=== PATIENT | male | born 1945 | race Caucasian/White ===

== ENCOUNTER 2018-09-03 15:42 | Inpatient (IN) | payer OTHER ==
[~2018-09-03] VITALS: Ht 175.3 cm; Wt 97.6 kg
[2018-09-03 17:17] LABS: PLATELET COUNT 351 x10^3mcL (130-400)
[2018-09-03 17:20] LABS: BASOPHIL % 0 % (0-2)
[2018-09-03 17:25] LABS: ALKALINE PHOSPHATASE 267 U/L (46-116); ALT/SGPT 41 U/L (16-63); AST/SGOT 38 U/L (15-37); BILIRUBIN TOTAL 0.99 mg/dL (0.20-1.00); CALCIUM 8.3 mg/dL (8.5-10.1); CARBON DIOXIDE 26.6 mmol/L (21-32); CHLORIDE SERUM 90 mmol/L (98-107); CREATININE SERUM 0.9 mg/dL (0.7-1.3); GLUCOSE SERUM 133 mg/dL (74-106); TOTAL PROTEIN, SERUM 7.8 g/dL (6.4-8.2)
[2018-09-03 17:28] LABS: SODIUM SERUM 123 mmol/L (136-145)
[2018-09-03 17:45] LABS: ovalocyte/elliptocyte 1+; rbc morphology (normal/abnorm) ABNORMAL (NORMAL)
[2018-09-03 18:42] LABS: AMPHETAMINE QUAL UR NONE DETECTED (See below)
[2018-09-03] MEDS ORDERED: MIN2 PO (18:47)
[2018-09-03] MEDS ORDERED: GENVOYA TABLET1 EACH PO (18:48)
[2018-09-03] MEDS ORDERED: ZOLOFT50 MG PO (18:48)
[2018-09-03] MEDS ORDERED: PREZISTA800 M1 PO (18:50)
[2018-09-03] MEDS ORDERED: METOCLOPRAMIDE10 M2 PO (18:50)
[2018-09-03] MEDS ORDERED: FUROSEMIDE40 MG PO (18:51)
[2018-09-03] MEDS ORDERED: CRESTOR20 M1 PO (18:51)
[2018-09-03] MEDS ORDERED: CARVEDILOL6.25 M1 PO (18:51)
[2018-09-03] MEDS ORDERED: CRESTOR10 M1 PO (18:51)
[2018-09-03] MEDS ORDERED: CARBIDOPA25 MG PO (18:55)
[2018-09-03] MEDS ORDERED: ARICEPT10 MG PO (18:55)
[2018-09-03] MEDS ORDERED: GABAPENTIN100 M2 PO (18:56)
[2018-09-03] MEDS ORDERED: MEMANTINE HCL5 MG PO (18:56)
[2018-09-03] MEDS ORDERED: LANTUS SOLOS100 U/M1 SQ (18:57)
[2018-09-03] MEDS ORDERED: PRAMIPEXOLE DI0.5 M1 PO (18:57)
[2018-09-03 19:24] LABS: CHOLESTEROL/HDL RATIO 5.3; MAGNESIUM 2.1 mg/dL (1.8-2.4); PHOSPHOROUS 2.4 mg/dL (2.5-4.9)
[2018-09-03 19:34] LABS: FREE T4 1.34 ng/dL (0.76-1.46); FREE THYROXINE INDEX 3.6 ug/dL (1.4-4.5); T4(THYROXINE) 9.4 ug/dL (4.7-13.3)
[2018-09-03 20:22] VITALS: BP 130/65
[2018-09-03 20:33] VITALS: Ht 175.3 cm; Wt 97.6 kg
[2018-09-03 20:56] LABS: T3 TOTAL 0.79 ng/mL
[2018-09-03 21:47] LABS: microscopic required? YES; urine erythrocyte NEGATIVE (NEGATIVE)
[2018-09-03] MEDS ORDERED: GOOD SENSE ASPI81 M3 PO (22:01)
[2018-09-04 05:31] VITALS: BP 147/68
[2018-09-04 06:46] LABS: CALCIUM 8.5 mg/dL (8.5-10.1); CARBON DIOXIDE 25.8 mmol/L (21-32); CHLORIDE SERUM 90 mmol/L (98-107); CREATININE SERUM 0.9 mg/dL (0.7-1.3); GLUCOSE SERUM 110 mg/dL (74-106); POTASSIUM SERUM 5.5 mmol/L (3.5-5.1)
[2018-09-04 06:56] LABS: SODIUM SERUM 123 mmol/L (136-145)
[2018-09-04 08:03] LABS: BASOPHIL % 0 % (0-2); PLATELET COUNT 331 x10^3mcL (130-400); RED CELL DISTRIBUTION WIDTH 22.1 % (11.5-14.5)
[2018-09-04 09:02] VITALS: BP 130/63
[2018-09-04 10:11] LABS: ovalocyte/elliptocyte 1+; schistocyte (helmet cell) 1+; tear drop cell (dacryocyte) 1+
[2018-09-04 10:12] LABS: acanthocyte (spur cell) 1+; rbc morphology (normal/abnorm) ABNORMAL (NORMAL); target cell (codocyte) 1+
[2018-09-04 13:00] VITALS: BP 119/67
[2018-09-04 17:04] VITALS: BP 136/64
[2018-09-04 20:43] VITALS: BP 139/61
[2018-09-05 05:12] VITALS: BP 139/71
[2018-09-05 06:45] LABS: PLATELET COUNT 332 x10^3mcL (130-400)
[2018-09-05 07:01] LABS: CALCIUM 8.3 mg/dL (8.5-10.1); CHLORIDE SERUM 93 mmol/L (98-107); GLUCOSE SERUM 128 mg/dL (74-106); MAGNESIUM 2.2 mg/dL (1.8-2.4); PHOSPHOROUS 3.9 mg/dL (2.5-4.9); POTASSIUM SERUM 3.9 mmol/L (3.5-5.1); SODIUM SERUM 131 mmol/L (136-145)
[2018-09-05 07:49] LABS: RED CELL DISTRIBUTION WIDTH 24.4 % (11.5-14.5)
[2018-09-05 09:07] LABS: BAND NEUTROPHIL 0 % (0-10); BASOPHIL 0 % (0-2); MONOCYTE 1 % (0-7); SEGMENTED NEUTROPHILS 97 % (37-75)
[2018-09-05 09:09] LABS: PLATELET MORPHOLOGY PLATELETS NORMAL
[2018-09-05 09:10] LABS: rbc morphology (normal/abnorm) ABNORMAL (NORMAL)
[2018-09-05 09:11] LABS: acanthocyte (spur cell) 1+
[2018-09-05 09:39] VITALS: BP 136/52
[2018-09-05 14:05] VITALS: BP 124/57
[2018-09-05 16:58] VITALS: BP 133/74
[2018-09-05 21:34] VITALS: BP 145/70
[2018-09-06 04:11] VITALS: BP 122/63
[2018-09-06 06:59] LABS: CALCIUM 8.5 mg/dL (8.5-10.1); CHLORIDE SERUM 95 mmol/L (98-107); GLUCOSE SERUM 139 mg/dL (74-106); MAGNESIUM 2.2 mg/dL (1.8-2.4); PHOSPHOROUS 3.5 mg/dL (2.5-4.9); POTASSIUM SERUM 3.9 mmol/L (3.5-5.1); SODIUM SERUM 133 mmol/L (136-145)
[2018-09-06 07:06] LABS: PLATELET COUNT 339 x10^3mcL (130-400)
[2018-09-06 07:08] LABS: RED CELL DISTRIBUTION WIDTH 24.2 % (11.5-14.5)
[2018-09-06 08:42] VITALS: BP 145/75
[2018-09-06] MEDS ORDERED: LEVAQUIN750 MG PO (09:23)
[2018-09-06 09:40] LABS: MONOCYTE 4 % (0-7); SEGMENTED NEUTROPHILS 92 % (37-75)
[2018-09-06 09:43] LABS: PLATELET MORPHOLOGY PLATELETS NORMAL; acanthocyte (spur cell) 1+; rbc morphology (normal/abnorm) ABNORMAL (NORMAL)
[2018-09-06 12:31] VITALS: BP 122/62
[2018-09-06 12:55] VITALS: BP 122/62
== END 2018-09-06 13:16 | disposition home or self-care (01) | DRG 291 ==
LOC: ED 15:42 → MU 18:44 → DU 18:44
PROVIDERS: Emergency Medicine; ADMIT General Practice
DX: I50.41 Acute combined systolic (congestive) and diastolic (congestive) heart failure (principal); J18.9 Pneumonia, unspecified organism; J96.01 Acute respiratory failure with hypoxia; N17.0 Acute kidney failure with tubular necrosis; E87.1 Hypo-osmolality and hyponatremia; D68.69 Other thrombophilia; E11.65 Type 2 diabetes mellitus with hyperglycemia; I48.91 Unspecified atrial fibrillation; E83.39 Other disorders of phosphorus metabolism; G25.81 Restless legs syndrome; E78.5 Hyperlipidemia, unspecified; D50.9 Iron deficiency anemia, unspecified; Z95.2 Presence of prosthetic heart valve; Z79.899 Other long term (current) drug therapy; Z68.32 Body mass index [BMI] 32.0-32.9, adult
CPT/HCPCS: 82962; 83880; 84439; 87804; 94150; J1644; J1815; J1940; J1956; J2543; J2920; J3370; J7030; J7620; J8597; Q0092

== ENCOUNTER 2018-10-27 18:29 | Emergency (ER) | payer OTHER ==
[~2018-10-27] VITALS: Ht 175.3 cm; Wt 106.6 kg
[~2018-10-27 18:29] MED LIST: ARICEPT10 MG PO; CARBIDOPA25 MG PO; CARVEDILOL6.25 M1 PO; CRESTOR10 M1 PO; CRESTOR20 M1 PO; FUROSEMIDE40 MG PO; GABAPENTIN100 M2 PO; GENVOYA TABLET1 EACH PO; GOOD SENSE ASPI81 M3 PO; LANTUS SOLOS100 U/M1 SQ; LEVAQUIN750 MG PO; MEMANTINE HCL5 MG PO; METOCLOPRAMIDE10 M2 PO; MIN2 PO; PRAMIPEXOLE DI0.5 M1 PO; PREZISTA800 M1 PO; ZOLOFT50 MG PO
[2018-10-27 18:54] VITALS: Ht 175.3 cm; Wt 106.6 kg
[2018-10-27 19:23] LABS: BASOPHIL % 0.7 % (0-2); PLATELET COUNT 211 x10^3mcL (130-400)
[2018-10-27 19:28] LABS: CARBON DIOXIDE 29.1 mmol/L (21-32); CHLORIDE SERUM 99 mmol/L (98-107); CREATININE SERUM 1.3 mg/dL (0.7-1.3); GLUCOSE SERUM 126 mg/dL (74-106); POTASSIUM SERUM 4.7 mmol/L (3.5-5.1); SODIUM SERUM 135 mmol/L (136-145)
[2018-10-27 19:29] LABS: RED CELL DISTRIBUTION WIDTH 30.1 % (11.5-14.5)
[2018-10-27 19:33] LABS: ALBUMIN 3.8 g/dL (3.4-5.0); ALKALINE PHOSPHATASE 111 U/L (46-116); ALT/SGPT 14 U/L (16-63); AST/SGOT 28 U/L (15-37); BILIRUBIN TOTAL 0.4 mg/dL (0.20-1.00); TOTAL PROTEIN, SERUM 7.7 g/dL (6.4-8.2)
[2018-10-27 19:50] LABS: rbc morphology (normal/abnorm) ABNORMAL (NORMAL)
[2018-10-27 21:44] VITALS: BP 116/67
== END 2018-10-27 21:44 | disposition home or self-care (01) ==
LOC: ED 18:29
PROVIDERS: Emergency Medicine
DX: R60.0 Localized edema (principal); I10 Essential (primary) hypertension; E11.9 Type 2 diabetes mellitus without complications; Z88.6 Allergy status to analgesic agent; Z88.5 Allergy status to narcotic agent
CPT/HCPCS: 83880; J1940; Q0092

== ENCOUNTER 2018-12-15 21:06 | Emergency (ER) | payer OTHER ==
[~2018-12-15] VITALS: Ht 175.3 cm; Wt 108.9 kg
[2018-12-15 21:34] VITALS: Ht 175.3 cm; Wt 108.9 kg
[2018-12-15 22:01] LABS: BASOPHIL % 0.3 % (0-2); PLATELET COUNT 169 x10^3mcL (130-400)
[2018-12-15 22:04] LABS: RED CELL DISTRIBUTION WIDTH 21.9 % (11.5-14.5)
[2018-12-15 22:07] LABS: CALCIUM 9.8 mg/dL (8.5-10.1); CARBON DIOXIDE 25.2 mmol/L (21-32); CHLORIDE SERUM 104 mmol/L (98-107); CREATININE SERUM 1.4 mg/dL (0.7-1.3); GLUCOSE SERUM 216 mg/dL (74-106); POTASSIUM SERUM 4.9 mmol/L (3.5-5.1); SODIUM SERUM 138 mmol/L (136-145)
[2018-12-15 22:11] LABS: ALBUMIN 3.6 g/dL (3.4-5.0); ALKALINE PHOSPHATASE 111 U/L (46-116); ALT/SGPT 15 U/L (16-63); AST/SGOT 18 U/L (15-37); BILIRUBIN TOTAL 0.45 mg/dL (0.20-1.00); TOTAL PROTEIN, SERUM 7.3 g/dL (6.4-8.2)
[2018-12-15 22:12] LABS: rbc morphology (normal/abnorm) ABNORMAL (NORMAL)
[2018-12-15 23:25] VITALS: BP 148/59
== END 2018-12-15 23:26 | disposition home or self-care (01) ==
LOC: ED 21:06
PROVIDERS: Emergency Medicine
DX: R60.0 Localized edema (principal); I10 Essential (primary) hypertension; E11.9 Type 2 diabetes mellitus without complications; Z88.8 Allergy status to other drugs, medicaments and biological substances; Z88.5 Allergy status to narcotic agent; Z98.890 Other specified postprocedural states
CPT/HCPCS: 83880; J3490; Q0092

== ENCOUNTER 2019-03-10 01:12 | Emergency (ER) | payer OTHER, MEDICAID ==
[~2019-03-10] VITALS: Ht 175.3 cm; Wt 109.0 kg
[2019-03-10 01:17] VITALS: Ht 175.3 cm; Wt 109.0 kg
[2019-03-10 03:34] VITALS: BP 123/58
== END 2019-03-10 03:34 | disposition home or self-care (01) ==
LOC: ED 01:12
DX: L02.212 Cutaneous abscess of back [any part, except buttock and flank] (principal); I10 Essential (primary) hypertension; E11.9 Type 2 diabetes mellitus without complications; Z88.8 Allergy status to other drugs, medicaments and biological substances
CPT/HCPCS: J2001

== ENCOUNTER 2019-03-13 21:28 | Emergency (ER) | payer OTHER, MEDICAID ==
[~2019-03-13] VITALS: Ht 175.3 cm; Wt 108.4 kg
[2019-03-13 21:56] VITALS: Ht 175.3 cm; Wt 108.4 kg
[2019-03-14 00:54] VITALS: BP 110/66
== END 2019-03-14 00:54 | disposition home or self-care (01) ==
LOC: ED 21:28
DX: L02.212 Cutaneous abscess of back [any part, except buttock and flank] (principal); E11.9 Type 2 diabetes mellitus without complications; I10 Essential (primary) hypertension; Z48.01 Encounter for change or removal of surgical wound dressing; Z88.5 Allergy status to narcotic agent

== ENCOUNTER 2019-03-16 10:55 | Emergency (ER) | payer OTHER, MEDICAID ==
[~2019-03-16] VITALS: Ht 172.7 cm; Wt 108.9 kg
[2019-03-16 10:57] VITALS: Ht 172.7 cm; Wt 108.9 kg
[2019-03-16 13:23] VITALS: BP 131/74
== END 2019-03-16 13:23 | disposition home or self-care (01) ==
LOC: ED 10:55
DX: L02.212 Cutaneous abscess of back [any part, except buttock and flank] (principal); Z48.01 Encounter for change or removal of surgical wound dressing

== ENCOUNTER 2019-03-19 08:29 | Emergency (ER) | payer OTHER, MEDICAID ==
[~2019-03-19] VITALS: Ht 172.7 cm; Wt 109.1 kg
[2019-03-19 08:47] VITALS: BP 111/54; Ht 172.7 cm; Wt 109.1 kg
== END 2019-03-19 10:30 | disposition home or self-care (01) ==
LOC: ED 08:29
DX: L02.212 Cutaneous abscess of back [any part, except buttock and flank] (principal); Z48.01 Encounter for change or removal of surgical wound dressing; I10 Essential (primary) hypertension; E11.9 Type 2 diabetes mellitus without complications; Z88.8 Allergy status to other drugs, medicaments and biological substances; Z98.890 Other specified postprocedural states

== ENCOUNTER 2019-04-19 16:07 | Inpatient (IN) | payer OTHER ==
[~2019-04-19] VITALS: Ht 172.7 cm; Wt 109.3 kg
[2019-04-19 16:10] VITALS: Ht 172.7 cm; Wt 109.3 kg
[2019-04-19 16:53] LABS: BASOPHIL % 0.2 % (0-2); PLATELET COUNT 185 x10^3mcL (130-400); RED CELL DISTRIBUTION WIDTH 14.8 % (11.5-14.5)
[2019-04-19 17:09] LABS: CALCIUM 8.5 mg/dL (8.5-10.1); CARBON DIOXIDE 27.2 mmol/L (21-32); CHLORIDE SERUM 101 mmol/L (98-107); CREATININE SERUM 1.2 mg/dL (0.7-1.3); GLUCOSE SERUM 129 mg/dL (74-106); POTASSIUM SERUM 4.1 mmol/L (3.5-5.1); SODIUM SERUM 136 mmol/L (136-145)
[2019-04-19 17:21] LABS: ALBUMIN 3.7 g/dL (3.4-5.0); ALKALINE PHOSPHATASE 149 U/L (46-116); ALT/SGPT 29 U/L (16-63); AST/SGOT 26 U/L (15-37); BILIRUBIN TOTAL 0.89 mg/dL (0.20-1.00); TOTAL PROTEIN, SERUM 7.5 g/dL (6.4-8.2)
[2019-04-19 17:45] LABS: UA SPECIFIC GRAVITY 1.015 (1.005-1.035); microscopic required? YES; urine erythrocyte TRACE (NEGATIVE)
[2019-04-19] MEDS ORDERED: ALDACTONE25 MG PO (18:14)
[2019-04-19] MEDS ORDERED: RESTORIL15 MG PO (18:14)
[2019-04-19 18:41] LABS: PHOSPHOROUS 2.3 mg/dL (2.5-4.9)
[2019-04-19 18:43] LABS: AMPHETAMINE QUAL UR NONE DETECTED (See below)
[2019-04-19 20:00] VITALS: BP 145/66
[2019-04-20 04:38] VITALS: BP 129/67
[2019-04-20 07:00] LABS: PLATELET COUNT 163 x10^3mcL (130-400)
[2019-04-20 07:02] LABS: CALCIUM 8.4 mg/dL (8.5-10.1); CARBON DIOXIDE 26.2 mmol/L (21-32); CHLORIDE SERUM 101 mmol/L (98-107); CREATININE SERUM 1.2 mg/dL (0.7-1.3); GLUCOSE SERUM 211 mg/dL (74-106); MAGNESIUM 1.9 mg/dL (1.8-2.4); PHOSPHOROUS 3.2 mg/dL (2.5-4.9); POTASSIUM SERUM 4.2 mmol/L (3.5-5.1); SODIUM SERUM 137 mmol/L (136-145)
[2019-04-20 07:25] VITALS: BP 122/67
[2019-04-20 07:46] LABS: BASOPHIL % 0 % (0-2); RED CELL DISTRIBUTION WIDTH 15.4 % (11.5-14.5)
[2019-04-20 11:51] VITALS: BP 121/65
[2019-04-20 16:07] VITALS: BP 127/53
[2019-04-20 19:56] VITALS: BP 130/67
[2019-04-21 05:13] VITALS: BP 124/64
[2019-04-21 06:20] LABS: CALCIUM 8.4 mg/dL (8.5-10.1); CARBON DIOXIDE 30.2 mmol/L (21-32); CHLORIDE SERUM 99 mmol/L (98-107); GLUCOSE SERUM 223 mg/dL (74-106); MAGNESIUM 2.3 mg/dL (1.8-2.4); PHOSPHOROUS 2.7 mg/dL (2.5-4.9); POTASSIUM SERUM 3.8 mmol/L (3.5-5.1); SODIUM SERUM 136 mmol/L (136-145)
[2019-04-21 06:21] LABS: PLATELET COUNT 178 x10^3mcL (130-400)
[2019-04-21 06:26] LABS: BASOPHIL % 0 % (0-2); RED CELL DISTRIBUTION WIDTH 15.3 % (11.5-14.5)
[2019-04-21 07:52] VITALS: BP 129/68
[2019-04-21 11:45] VITALS: BP 115/60
[2019-04-21 16:15] VITALS: BP 115/59
[2019-04-21 16:32] VITALS: BP 115/59
[2019-04-21 19:45] VITALS: BP 140/53
[2019-04-22 04:49] VITALS: BP 132/61
[2019-04-22 06:00] LABS: PLATELET COUNT 192 x10^3mcL (130-400)
[2019-04-22 06:10] LABS: CALCIUM 8.3 mg/dL (8.5-10.1); CHLORIDE SERUM 102 mmol/L (98-107); CREATININE SERUM 0.9 mg/dL (0.7-1.3); GLUCOSE SERUM 204 mg/dL (74-106); SODIUM SERUM 137 mmol/L (136-145)
[2019-04-22 06:54] LABS: BASOPHIL % 0 % (0-2); RED CELL DISTRIBUTION WIDTH 15.2 % (11.5-14.5)
[2019-04-22 09:01] VITALS: BP 136/71
[2019-04-22 11:48] VITALS: BP 95/50
[2019-04-22] MEDS ORDERED: LEVOFLOXACIN500 M1 PO (12:48)
[2019-04-22 13:41] VITALS: BP 120/60; BP 95/50
== END 2019-04-22 14:31 | disposition home or self-care (01) | DRG 291 ==
LOC: ED 16:07 → DU 18:01
PROVIDERS: Emergency Medicine; Internal Medicine; ADMIT Family Medicine
DX: I11.0 Hypertensive heart disease with heart failure (principal); J18.9 Pneumonia, unspecified organism; J96.01 Acute respiratory failure with hypoxia; D68.69 Other thrombophilia; I50.9 Heart failure, unspecified; E11.65 Type 2 diabetes mellitus with hyperglycemia; E83.39 Other disorders of phosphorus metabolism; D50.9 Iron deficiency anemia, unspecified; E78.5 Hyperlipidemia, unspecified; R74.0 Nonspecific elevation of levels of transaminase and lactic acid dehydrogenase [LDH]; G25.81 Restless legs syndrome; Z79.82 Long term (current) use of aspirin; Z79.4 Long term (current) use of insulin; Z95.2 Presence of prosthetic heart valve; Z68.36 Body mass index [BMI] 36.0-36.9, adult
CPT/HCPCS: 36600; 82962; 83880; 87804; 90658; 97116-GP; 97530-GP; G0378; J0456; J1940; J2543; J2920; J7040; J7613; J7620; J7644; Q0092

== ENCOUNTER 2019-04-29 18:53 | Inpatient (IN) | payer OTHER ==
[~2019-04-29] VITALS: Ht 172.7 cm; Wt 102.0 kg
[~2019-04-29 18:53] MED LIST changes: +ALDACTONE25 MG PO; +LEVOFLOXACIN500 M1 PO; +RESTORIL15 MG PO
[2019-04-29 19:25] VITALS: Ht 172.7 cm; Wt 102.0 kg
[2019-04-29 20:42] LABS: microscopic required? NO
[2019-04-29 21:00] LABS: CALCIUM 7.1 mg/dL (8.5-10.1); CARBON DIOXIDE 24.5 mmol/L (21-32); CHLORIDE SERUM 102 mmol/L (98-107); CREATININE SERUM 1.7 mg/dL (0.7-1.3); GLUCOSE SERUM 346 mg/dL (74-106); POTASSIUM SERUM 4.2 mmol/L (3.5-5.1); SODIUM SERUM 133 mmol/L (136-145)
[2019-04-29 21:04] LABS: ALBUMIN 2.2 g/dL (3.4-5.0); ALKALINE PHOSPHATASE 84 U/L (46-116); ALT/SGPT 19 U/L (16-63); AST/SGOT 20 U/L (15-37); BILIRUBIN TOTAL 0.3 mg/dL (0.20-1.00); MAGNESIUM 2.1 mg/dL (1.8-2.4); TOTAL PROTEIN, SERUM 4.8 g/dL (6.4-8.2)
[2019-04-29 21:07] LABS: urine erythrocyte NEGATIVE (NEGATIVE)
[2019-04-29 21:08] LABS: PLATELET COUNT 234 x10^3mcL (130-400)
[2019-04-29 21:15] LABS: BASOPHIL % 0 % (0-2); RED CELL DISTRIBUTION WIDTH 18.3 % (11.5-14.5)
[2019-04-29] MEDS ORDERED: TRAMADOL HCL50 MG PO (21:41)
[2019-04-29] MEDS ORDERED: LAMICTAL200 MG PO (21:41)
[2019-04-29] MEDS ORDERED: AMOXICILLIN500 M1 PO (21:42)
[2019-04-29] MEDS ORDERED: NOR10 PO (21:42)
[2019-04-29] MEDS ORDERED: MEMANTINE HCL5 MG PO (21:42)
[2019-04-29] MEDS ORDERED: POTASSIUM CHLO10 MEQ PO (21:42)
[2019-04-29] MEDS ORDERED: LEVODOPA1 POW (21:43)
[2019-04-29 21:51] LABS: rbc morphology (normal/abnorm) ABNORMAL (NORMAL)
[2019-04-29 22:54] VITALS: BP 106/49
[2019-04-29 23:31] LABS: CHOLESTEROL/HDL RATIO 4.1
[2019-04-30] VITALS (8 sets, daily range): BP systolic 92–136; BP diastolic 40–72
[2019-04-30 04:52] LABS: AMPHETAMINE QUAL UR NONE DETECTED (See below)
[2019-04-30 12:52] LABS: CALCIUM 7.5 mg/dL (8.5-10.1); CARBON DIOXIDE 27.6 mmol/L (21-32); CHLORIDE SERUM 102 mmol/L (98-107); CREATININE SERUM 1.3 mg/dL (0.7-1.3); GLUCOSE SERUM 217 mg/dL (74-106); MAGNESIUM 2.1 mg/dL (1.8-2.4); PHOSPHOROUS 2.6 mg/dL (2.5-4.9); POTASSIUM SERUM 4.8 mmol/L (3.5-5.1); SODIUM SERUM 133 mmol/L (136-145)
[2019-04-30 12:58] LABS: BASOPHIL % 0.2 % (0-2); PLATELET COUNT 209 x10^3mcL (130-400); RED BLOOD CELLS 2.27 M/mm3 (4.52-5.90)
[2019-04-30 12:59] LABS: RED CELL DISTRIBUTION WIDTH 15.5 % (11.5-14.5)
[2019-04-30 13:01] LABS: TOTAL IRON BINDING CAPACITY 272 ug/dL (250-450)
[2019-04-30 13:05] LABS: IRON 27 ug/dL (65-170)
[2019-04-30 14:57] LABS: BASOPHIL % 0.2 % (0-2); PLATELET COUNT 198 x10^3mcL (130-400)
[2019-04-30 15:11] LABS: rbc morphology (normal/abnorm) ABNORMAL (NORMAL)
[2019-04-30 21:55] LABS: BASOPHIL % 0.1 % (0-2); PLATELET COUNT 198 x10^3mcL (130-400)
[2019-04-30 22:02] LABS: RED CELL DISTRIBUTION WIDTH 15.9 % (11.5-14.5)
[2019-05-01 01:15] VITALS: BP 136/61
[2019-05-01 05:01] VITALS: BP 127/64
[2019-05-01 06:50] LABS: CALCIUM 7.3 mg/dL (8.5-10.1); CARBON DIOXIDE 27.9 mmol/L (21-32); CHLORIDE SERUM 103 mmol/L (98-107); GLUCOSE SERUM 187 mg/dL (74-106); POTASSIUM SERUM 3.8 mmol/L (3.5-5.1); SODIUM SERUM 137 mmol/L (136-145)
[2019-05-01 06:59] LABS: BASOPHIL % 0.2 % (0-2); PLATELET COUNT 187 x10^3mcL (130-400)
[2019-05-01 07:28] LABS: RED CELL DISTRIBUTION WIDTH 15.8 % (11.5-14.5)
[2019-05-01 08:33] VITALS: BP 150/51
[2019-05-01 13:05] VITALS: BP 112/63
[2019-05-01 16:48] VITALS: BP 117/65
[2019-05-01 20:00] VITALS: BP 110/63
[2019-05-02 05:02] VITALS: BP 131/66
[2019-05-02 06:41] LABS: PLATELET COUNT 170 x10^3mcL (130-400)
[2019-05-02 06:42] LABS: CALCIUM 7.7 mg/dL (8.5-10.1); CARBON DIOXIDE 27.3 mmol/L (21-32); CHLORIDE SERUM 103 mmol/L (98-107); CREATININE SERUM 0.8 mg/dL (0.7-1.3); GLUCOSE SERUM 164 mg/dL (74-106); MAGNESIUM 2.2 mg/dL (1.8-2.4); PHOSPHOROUS 2.1 mg/dL (2.5-4.9); POTASSIUM SERUM 3.5 mmol/L (3.5-5.1); SODIUM SERUM 136 mmol/L (136-145)
[2019-05-02 07:07] LABS: BASOPHIL % 0 % (0-2); RED CELL DISTRIBUTION WIDTH 16.1 % (11.5-14.5)
[2019-05-02 08:20] VITALS: BP 125/58
[2019-05-02 12:37] VITALS: BP 134/61
[2019-05-02 16:31] VITALS: BP 116/76
[2019-05-02 20:30] VITALS: BP 148/78
[2019-05-03 05:02] VITALS: BP 116/57
[2019-05-03 07:10] LABS: BASOPHIL % 0.4 % (0-2); PLATELET COUNT 158 x10^3mcL (130-400)
[2019-05-03 07:15] LABS: RED CELL DISTRIBUTION WIDTH 16.2 % (11.5-14.5)
[2019-05-03 07:20] LABS: CALCIUM 7.5 mg/dL (8.5-10.1); CARBON DIOXIDE 27.2 mmol/L (21-32); CHLORIDE SERUM 105 mmol/L (98-107); CREATININE SERUM 0.8 mg/dL (0.7-1.3); GLUCOSE SERUM 168 mg/dL (74-106); POTASSIUM SERUM 3.6 mmol/L (3.5-5.1); SODIUM SERUM 137 mmol/L (136-145)
[2019-05-03] MEDS ORDERED: FER300 PO (08:37)
[2019-05-03] MEDS ORDERED: PRI20 PO (08:44)
[2019-05-03] MEDS ORDERED: FLA500 PO (08:45)
[2019-05-03 08:46] VITALS: BP 120/65
[2019-05-03 10:53] VITALS: BP 116/57
[2019-05-03 12:25] VITALS: BP 110/71
== END 2019-05-03 13:05 | disposition home health service (06) | DRG 377 ==
LOC: ED 18:53 → DU 21:30
PROVIDERS: Emergency Medicine; Internal Medicine Gastroenterology; ADMIT General Practice
PROC: 30233N1 Transfusion of Nonautologous Red Blood Cells into Peripheral Vein, Percutaneous Approach (ICD-10-PCS; 2019-04-29)
PROC: 0DB78ZX Excision of Stomach, Pylorus, Via Natural or Artificial Opening Endoscopic, Diagnostic (ICD-10-PCS; principal; 2019-05-01 14:30)
PROC: 0DBK8ZZ Excision of Ascending Colon, Via Natural or Artificial Opening Endoscopic (ICD-10-PCS; 2019-05-01 14:30)
PROC: 0DBL8ZZ Excision of Transverse Colon, Via Natural or Artificial Opening Endoscopic (ICD-10-PCS; 2019-05-01 14:30)
PROC: 0DBH8ZZ Excision of Cecum, Via Natural or Artificial Opening Endoscopic (ICD-10-PCS; 2019-05-01 14:30)
DX: K92.1 Melena (principal); N17.0 Acute kidney failure with tubular necrosis; E43 Unspecified severe protein-calorie malnutrition; E87.1 Hypo-osmolality and hyponatremia; K62.6 Ulcer of anus and rectum; K25.9 Gastric ulcer, unspecified as acute or chronic, without hemorrhage or perforation; K26.9 Duodenal ulcer, unspecified as acute or chronic, without hemorrhage or perforation; D63.8 Anemia in other chronic diseases classified elsewhere; I95.89 Other hypotension; D12.2 Benign neoplasm of ascending colon; D12.0 Benign neoplasm of cecum; D12.3 Benign neoplasm of transverse colon; K64.8 Other hemorrhoids; I10 Essential (primary) hypertension; E83.51 Hypocalcemia; Z95.2 Presence of prosthetic heart valve; Z79.82 Long term (current) use of aspirin; Z68.30 Body mass index [BMI] 30.0-30.9, adult
CPT/HCPCS: 36600; 43235; 45378; 82962; 83880; 97112-GP; C9113; G0378; J0290; J1200; J1610; J2250; J2310; J2916; J3010; J3490; J7030; J7050; P9016; Q0092; Q0163

== ENCOUNTER 2019-06-13 02:57 | Inpatient (IN) | payer OTHER ==
[~2019-06-13] VITALS: Ht 175.3 cm; Wt 106.6 kg
[~2019-06-13 02:57] MED LIST changes: +AMOXICILLIN500 M1 PO; +FER300 PO; +FLA500 PO; +LAMICTAL200 MG PO; +LEVODOPA1 POW; +NOR10 PO; +POTASSIUM CHLO10 MEQ PO; +PRI20 PO; +TRAMADOL HCL50 MG PO
[2019-06-13 03:41] VITALS: Ht 175.3 cm; Wt 106.6 kg
[2019-06-13 04:03] LABS: BASOPHIL % 0.2 % (0-2); PLATELET COUNT 169 x10^3mcL (130-400)
[2019-06-13 04:06] LABS: RED CELL DISTRIBUTION WIDTH 16.3 % (11.5-14.5)
[2019-06-13 04:10] LABS: ALBUMIN 3.8 g/dL (3.4-5.0); ALKALINE PHOSPHATASE 143 U/L (46-116); ALT/SGPT 15 U/L (16-63); AST/SGOT 26 U/L (15-37); BILIRUBIN TOTAL 0.7 mg/dL (0.20-1.00); CALCIUM 8.1 mg/dL (8.5-10.1); CARBON DIOXIDE 20.1 mmol/L (21-32); CHLORIDE SERUM 100 mmol/L (98-107); CREATININE SERUM 2.3 mg/dL (0.7-1.3); GLUCOSE SERUM 199 mg/dL (74-106); MAGNESIUM 2.7 mg/dL (1.8-2.4); SODIUM SERUM 130 mmol/L (136-145)
[2019-06-13 04:22] LABS: POTASSIUM SERUM 7.1 mmol/L (3.5-5.1)
[2019-06-13 06:10] VITALS: BP 86/43
[2019-06-13 06:19] VITALS: BP 115/40
[2019-06-13 08:00] VITALS: BP 118/58
[2019-06-13 08:36] LABS: CALCIUM 8.1 mg/dL (8.5-10.1); CARBON DIOXIDE 21.8 mmol/L (21-32); CHLORIDE SERUM 102 mmol/L (98-107); CREATININE SERUM 2.1 mg/dL (0.7-1.3); GLUCOSE SERUM 136 mg/dL (74-106); SODIUM SERUM 132 mmol/L (136-145)
[2019-06-13 08:39] LABS: POTASSIUM SERUM 7.1 mmol/L (3.5-5.1)
[2019-06-13 11:24] VITALS: BP 123/41
[2019-06-13 13:13] LABS: microscopic required? NO
[2019-06-13 13:25] LABS: UA SPECIFIC GRAVITY 1.015 (1.005-1.035); urine erythrocyte NEGATIVE (NEGATIVE)
[2019-06-13 13:31] LABS: AMPHETAMINE QUAL UR NONE DETECTED (See below)
[2019-06-13 15:52] VITALS: BP 127/57
[2019-06-13 17:53] LABS: CALCIUM 8.4 mg/dL (8.5-10.1); CARBON DIOXIDE 24.2 mmol/L (21-32); CHLORIDE SERUM 101 mmol/L (98-107); CREATININE SERUM 1.7 mg/dL (0.7-1.3); GLUCOSE SERUM 162 mg/dL (74-106); POTASSIUM SERUM 5.5 mmol/L (3.5-5.1); SODIUM SERUM 131 mmol/L (136-145)
[2019-06-13 17:58] LABS: ALBUMIN 3.4 g/dL (3.4-5.0); ALKALINE PHOSPHATASE 132 U/L (46-116); ALT/SGPT 24 U/L (16-63); AST/SGOT 17 U/L (15-37); BILIRUBIN TOTAL 0.76 mg/dL (0.20-1.00); TOTAL PROTEIN, SERUM 7.3 g/dL (6.4-8.2)
[2019-06-13 20:41] VITALS: BP 126/60
[2019-06-14 06:15] VITALS: BP 138/63
[2019-06-14 07:09] LABS: BASOPHIL % 0.4 % (0-2); PLATELET COUNT 170 x10^3mcL (130-400)
[2019-06-14 07:31] LABS: RED CELL DISTRIBUTION WIDTH 16.3 % (11.5-14.5)
[2019-06-14 07:44] LABS: CALCIUM 9.3 mg/dL (8.5-10.1); CARBON DIOXIDE 23.1 mmol/L (21-32); CHLORIDE SERUM 100 mmol/L (98-107); CREATININE SERUM 1.3 mg/dL (0.7-1.3); GLUCOSE SERUM 161 mg/dL (74-106); MAGNESIUM 2.1 mg/dL (1.8-2.4); PHOSPHOROUS 2.1 mg/dL (2.5-4.9); POTASSIUM SERUM 5.1 mmol/L (3.5-5.1); SODIUM SERUM 134 mmol/L (136-145)
[2019-06-14 08:59] VITALS: BP 100/61
[2019-06-14] MEDS ORDERED: KLONOPIN2 MG PO (12:21)
[2019-06-14 13:49] VITALS: BP 134/65
[2019-06-14 16:47] VITALS: BP 107/62
[2019-06-14] MEDS ORDERED: LOSARTAN POTAS100 M1 PO (17:01)
[2019-06-14] MEDS ORDERED: EPZICOM1 TAB (17:01)
[2019-06-14] MEDS ORDERED: DEPAKOTE500 MG PO ×2 (17:04)
[2019-06-14] MEDS ORDERED: COG1 PO (17:06)
[2019-06-14 21:14] VITALS: BP 109/55
[2019-06-15 05:40] VITALS: BP 140/67
[2019-06-15 07:50] LABS: BASOPHIL % 0.3 % (0-2); PLATELET COUNT 199 x10^3mcL (130-400)
[2019-06-15 07:56] VITALS: BP 117/63
[2019-06-15 07:58] LABS: RED CELL DISTRIBUTION WIDTH 16.4 % (11.5-14.5)
[2019-06-15 08:19] LABS: CALCIUM 9.1 mg/dL (8.5-10.1); CARBON DIOXIDE 24.7 mmol/L (21-32); CHLORIDE SERUM 101 mmol/L (98-107); GLUCOSE SERUM 125 mg/dL (74-106); MAGNESIUM 1.9 mg/dL (1.8-2.4); PHOSPHOROUS 2.9 mg/dL (2.5-4.9); POTASSIUM SERUM 4.2 mmol/L (3.5-5.1); SODIUM SERUM 136 mmol/L (136-145)
[2019-06-15 12:37] VITALS: BP 126/59
[2019-06-15 16:40] VITALS: BP 114/57
[2019-06-15 19:39] VITALS: BP 124/54
[2019-06-16 05:51] VITALS: BP 129/64
[2019-06-16 07:40] VITALS: BP 109/64
[2019-06-16 12:02] VITALS: BP 117/50
[2019-06-16 16:41] VITALS: BP 129/63
== END 2019-06-16 19:00 | DRG 682 ==
LOC: ED 02:57 → DU 04:56 → IC 04:56 → DU 06:01
PROVIDERS: Emergency Medicine; ADMIT Internal Medicine
DX: N17.9 Acute kidney failure, unspecified (principal); J96.01 Acute respiratory failure with hypoxia; I50.33 Acute on chronic diastolic (congestive) heart failure; B20 Human immunodeficiency virus [HIV] disease; E87.1 Hypo-osmolality and hyponatremia; I13.0 Hypertensive heart and chronic kidney disease with heart failure and stage 1 through stage 4 chronic kidney disease, or unspecified chronic kidney disease; E11.22 Type 2 diabetes mellitus with diabetic chronic kidney disease; N18.3 Chronic kidney disease, stage 3 (moderate); E87.5 Hyperkalemia; I95.89 Other hypotension; R00.1 Bradycardia, unspecified; E11.9 Type 2 diabetes mellitus without complications; E78.5 Hyperlipidemia, unspecified; D64.9 Anemia, unspecified; Z79.899 Other long term (current) drug therapy; Z95.3 Presence of xenogenic heart valve
CPT/HCPCS: 82962; 83880; 97116-GP; 97530-GP; G0378; J0610; J1815; J1940; J2543; J3490; J7030; J7040; J7613; J7620; Q0092

== ENCOUNTER 2019-08-19 17:23 | Inpatient (IN) | payer OTHER ==
[~2019-08-19] VITALS: Ht 175.3 cm; Wt 99.9 kg
[~2019-08-19 17:23] MED LIST changes: +COG1 PO; +DEPAKOTE500 MG PO; +EPZICOM1 TAB; +KLONOPIN2 MG PO; +LOSARTAN POTAS100 M1 PO
[2019-08-19 17:28] VITALS: Ht 175.3 cm; Wt 99.9 kg
[2019-08-19 18:27] LABS: BASOPHIL % 0.2 % (0-2); PLATELET COUNT 168 x10^3mcL (130-400); RED CELL DISTRIBUTION WIDTH 15.5 % (11.5-14.5)
[2019-08-19 18:31] LABS: CALCIUM 8.7 mg/dL (8.5-10.1); CARBON DIOXIDE 28.4 mmol/L (21-32); CHLORIDE SERUM 105 mmol/L (98-107); CREATININE SERUM 1.1 mg/dL (0.7-1.3); GLUCOSE SERUM 157 mg/dL (74-106); POTASSIUM SERUM 3.5 mmol/L (3.5-5.1); SODIUM SERUM 143 mmol/L (136-145)
[2019-08-19 18:36] LABS: ALBUMIN 3.9 g/dL (3.4-5.0); ALKALINE PHOSPHATASE 160 U/L (46-116); ALT/SGPT 23 U/L (16-63); AST/SGOT 23 U/L (15-37); BILIRUBIN TOTAL 0.7 mg/dL (0.20-1.00); TOTAL PROTEIN, SERUM 8.5 g/dL (6.4-8.2)
[2019-08-19 19:42] LABS: T3 TOTAL 0.99 ng/mL
[2019-08-19 19:46] LABS: FREE T4 0.94 ng/dL (0.76-1.46); T4(THYROXINE) 6.1 ug/dL (4.7-13.3)
[2019-08-19 20:07] LABS: CHOLESTEROL/HDL RATIO 2.9; MAGNESIUM 2.1 mg/dL (1.8-2.4)
[2019-08-19 20:35] VITALS: BP 146/73
[2019-08-19 20:48] VITALS: BP 147/72
[2019-08-20 01:11] LABS: microscopic required? NO
[2019-08-20 01:29] LABS: urine erythrocyte NEGATIVE (NEGATIVE)
[2019-08-20 01:39] LABS: AMPHETAMINE QUAL UR NONE DETECTED (See below)
[2019-08-20 04:54] VITALS: BP 128/60
[2019-08-20 06:07] LABS: BASOPHIL % 0.3 % (0-2); PLATELET COUNT 141 x10^3mcL (130-400)
[2019-08-20 06:08] LABS: RED CELL DISTRIBUTION WIDTH 15.6 % (11.5-14.5)
[2019-08-20 06:40] LABS: CALCIUM 8.7 mg/dL (8.5-10.1); CARBON DIOXIDE 30.5 mmol/L (21-32); CHLORIDE SERUM 108 mmol/L (98-107); CREATININE SERUM 1.2 mg/dL (0.7-1.3); GLUCOSE SERUM 186 mg/dL (74-106); MAGNESIUM 2.3 mg/dL (1.8-2.4); PHOSPHOROUS 3.1 mg/dL (2.5-4.9); POTASSIUM SERUM 3.5 mmol/L (3.5-5.1); SODIUM SERUM 146 mmol/L (136-145)
[2019-08-20 08:23] VITALS: BP 119/56
[2019-08-20 11:51] VITALS: BP 139/57
[2019-08-20 16:51] VITALS: BP 145/64
[2019-08-20 19:36] VITALS: BP 132/60
[2019-08-21 05:15] VITALS: BP 127/58
[2019-08-21 06:42] LABS: BASOPHIL % 0.2 % (0-2); PLATELET COUNT 132 x10^3mcL (130-400)
[2019-08-21 06:51] LABS: CARBON DIOXIDE 33.9 mmol/L (21-32); CHLORIDE SERUM 106 mmol/L (98-107); GLUCOSE SERUM 137 mg/dL (74-106); POTASSIUM SERUM 3.2 mmol/L (3.5-5.1); SODIUM SERUM 145 mmol/L (136-145)
[2019-08-21 07:17] LABS: RED CELL DISTRIBUTION WIDTH 15.1 % (11.5-14.5)
[2019-08-21 08:10] VITALS: BP 137/82
[2019-08-21 12:13] VITALS: BP 128/59
[2019-08-21] MEDS ORDERED: LASIX40 MG PO (14:25)
[2019-08-21 15:35] VITALS: BP 128/59
[2019-08-21 16:45] VITALS: BP 128/60
[2019-08-21 20:17] VITALS: BP 101/50
[2019-08-22 05:45] VITALS: BP 131/56
[2019-08-22 06:47] LABS: CALCIUM 8.9 mg/dL (8.5-10.1); CARBON DIOXIDE 30.9 mmol/L (21-32); CHLORIDE SERUM 107 mmol/L (98-107); GLUCOSE SERUM 114 mg/dL (74-106); POTASSIUM SERUM 3.4 mmol/L (3.5-5.1); SODIUM SERUM 146 mmol/L (136-145)
[2019-08-22 08:05] LABS: BASOPHIL % 0.3 % (0-2); PLATELET COUNT 147 x10^3mcL (130-400); RED CELL DISTRIBUTION WIDTH 15.4 % (11.5-14.5)
[2019-08-22 08:43] VITALS: BP 136/61
[2019-08-22 13:40] VITALS: BP 129/85
[2019-08-22 17:35] VITALS: BP 123/54
== END 2019-08-22 18:00 | disposition home or self-care (01) | DRG 291 ==
LOC: ED 17:23 → DU 18:56
PROVIDERS: Emergency Medicine; ADMIT Student in an Organized Health Care Education/Training Program
DX: I13.0 Hypertensive heart and chronic kidney disease with heart failure and stage 1 through stage 4 chronic kidney disease, or unspecified chronic kidney disease (principal); N17.0 Acute kidney failure with tubular necrosis; J96.01 Acute respiratory failure with hypoxia; I50.33 Acute on chronic diastolic (congestive) heart failure; I16.1 Hypertensive emergency; E44.1 Mild protein-calorie malnutrition; E11.65 Type 2 diabetes mellitus with hyperglycemia; N18.9 Chronic kidney disease, unspecified; E11.22 Type 2 diabetes mellitus with diabetic chronic kidney disease; E11.42 Type 2 diabetes mellitus with diabetic polyneuropathy; D63.1 Anemia in chronic kidney disease; I25.10 Atherosclerotic heart disease of native coronary artery without angina pectoris; J44.9 Chronic obstructive pulmonary disease, unspecified; E78.5 Hyperlipidemia, unspecified; G25.81 Restless legs syndrome; Z95.2 Presence of prosthetic heart valve; Z68.33 Body mass index [BMI] 33.0-33.9, adult; Z95.1 Presence of aortocoronary bypass graft; Z79.4 Long term (current) use of insulin; Z79.82 Long term (current) use of aspirin
CPT/HCPCS: 36600; 82962; 83880; 84439; 87804; G0378; J1815; J1885; J1940; Q0092

== ENCOUNTER 2019-08-28 06:43 | Day surgery (SDC) | payer OTHER ==
[~2019-08-28] VITALS: Ht 175.3 cm; Wt 97.1 kg
[~2019-08-28 06:43] MED LIST changes: +LASIX40 MG PO
[2019-08-28 07:30] VITALS: BP 122/56
[2019-08-28 12:50] VITALS: BP 134/61
== END 2019-08-28 10:35 | disposition home or self-care (01) ==
LOC: GI 06:43 → OR 12:00 → GI 12:00 → OR 13:00
DX: K92.2 Gastrointestinal hemorrhage, unspecified (principal); K31.89 Other diseases of stomach and duodenum; I50.9 Heart failure, unspecified; E11.9 Type 2 diabetes mellitus without complications; D64.9 Anemia, unspecified; F41.9 Anxiety disorder, unspecified; F32.9 Major depressive disorder, single episode, unspecified; Z79.4 Long term (current) use of insulin; Z95.2 Presence of prosthetic heart valve; Z88.8 Allergy status to other drugs, medicaments and biological substances; Z79.82 Long term (current) use of aspirin; Z90.49 Acquired absence of other specified parts of digestive tract; Z79.899 Other long term (current) drug therapy
CPT/HCPCS: 43235; 82962; J1200; J1610; J2250; J2310; J2765; J3010; J3490

== ENCOUNTER 2019-09-27 18:01 | Emergency (ER) | payer OTHER ==
[~2019-09-27] VITALS: Ht 175.3 cm; Wt 100.2 kg
[2019-09-27 18:13] VITALS: Ht 175.3 cm; Wt 100.2 kg
[2019-09-27 20:37] VITALS: BP 112/56
== END 2019-09-27 20:37 | disposition home or self-care (01) ==
LOC: ED 18:01
DX: S70.02XA Contusion of left hip, initial encounter (principal); S70.01XA Contusion of right hip, initial encounter; I10 Essential (primary) hypertension; E11.9 Type 2 diabetes mellitus without complications; Z88.5 Allergy status to narcotic agent; W01.0XXA Fall on same level from slipping, tripping and stumbling without subsequent striking against object, initial encounter; Y93.89 Activity, other specified; Y92.89 Other specified places as the place of occurrence of the external cause; Y99.8 Other external cause status

== ENCOUNTER 2020-06-18 16:42 | Emergency (ER) | payer OTHER ==
[~2020-06-18] VITALS: Ht 172.7 cm; Wt 90.7 kg
[2020-06-18 17:13] VITALS: Ht 172.7 cm; Wt 90.7 kg
[2020-06-18 17:27] LABS: BASOPHIL % 0.6 % (0.2-1.5); PLATELET COUNT 174 x10^3mcL (152-348)
[2020-06-18 17:29] LABS: RED CELL DISTRIBUTION WIDTH 14.8 % (12.1-16.2)
[2020-06-18 17:36] LABS: CALCIUM 9.3 mg/dL (8.5-10.1); CARBON DIOXIDE 27.9 mmol/L (21-32); CHLORIDE SERUM 98 mmol/L (98-107); CREATININE SERUM 1.3 mg/dL (0.7-1.3); GLUCOSE SERUM 218 mg/dL (74-106); POTASSIUM SERUM 4.8 mmol/L (3.5-5.1); SODIUM SERUM 134 mmol/L (136-145)
[2020-06-18 17:41] LABS: ALBUMIN 3.7 g/dL (3.4-5.0); ALKALINE PHOSPHATASE 108 U/L (46-116); ALT/SGPT 20 U/L (16-63); AST/SGOT 23 U/L (15-37); BILIRUBIN TOTAL 0.5 mg/dL (0.20-1.00); LIPASE 103 IU/L (73-393); TOTAL PROTEIN, SERUM 7.5 g/dL (6.4-8.2)
[2020-06-18 20:00] VITALS: BP 120/64
== END 2020-06-18 20:00 | disposition home or self-care (01) ==
LOC: ED 16:42
PROVIDERS: Emergency Medicine
DX: S30.1XXA Contusion of abdominal wall, initial encounter (principal); I50.9 Heart failure, unspecified; I11.0 Hypertensive heart disease with heart failure; E11.9 Type 2 diabetes mellitus without complications; Z20.828 Contact with and (suspected) exposure to other viral communicable diseases; Z88.8 Allergy status to other drugs, medicaments and biological substances; X58.XXXA Exposure to other specified factors, initial encounter; Y93.89 Activity, other specified; Y92.89 Other specified places as the place of occurrence of the external cause; Y99.8 Other external cause status
CPT/HCPCS: 83880; U0003